=== PATIENT | male | born 1980 | race Hispanic/Latino ===

== ENCOUNTER 2024-11-16 07:54 | Emergency (ER) | payer SELFPAY ==
[2024-11-16] MEDS ORDERED: Magnesium 2 GM/50 ML BAG (IN WATER) ONE (08:19)
[2024-11-16 08:50] LABS: #Basophils 0.08 10x3/uL (0.0-0.2); #Eosinophils 0.12 10x3/uL (0.0-0.7); #Monocytes 0.81 10x3/uL (0.11-0.59); #Neutrophils 15.47 10x3/uL (1.40-6.50); %Basophils 0.3 % (0.0-1.0); %Eosinophils 0.5 % (0.0-10.0); %Lymphocytes 26.3 % (21.0-51.0); %Monocytes 3.4 % (0.0-10.0); %Neutrophils 64.7 % (42.0-75.0); Hematocrit 33.9 % (42.0-52.0); Hemoglobin 11.3 g/dL (14.0-18.0); Mean Corpuscular Hemoglobin 28.9 pg (27.0-31.0); Mean Corpuscular Volume 86.7 fL (78.0-98.0); Platelet Count 184 10x3/uL (130-400); Red Blood Cell (RBC) Count 3.91 mill/uL (4.70-6.10); White Blood Cell (WBC) Count 23.92 10x3/uL (4.8-10.8)
[2024-11-16 09:05] LABS: ALT (SGPT) 293 U/L (Less than 45); AST (SGOT) 270 U/L (11-34); Albumin 2.5 g/dL (3.1-4.5); Alkaline Phosphatase 82 U/L (40-110); Anion Gap 27 mmol/L (10-20); BUN (Urea Nitrogen) 14 mg/dL (8.9-20.6); Bilirubin, Total 0.4 mg/dL (0.3-1.2); Calc. Creatinine Clearance 0 mL/min (70-130); Calcium 9.5 mg/dL (7.8-10.44); Carbon Dioxide 20 mmol/L (22-29); Chloride 104 mmol/L (98-107); Globulin 2.7 g/dL (2.4-3.5); Glucose 391 mg/dL (70-105); Potassium 2.8 mmol/L (3.5-5.1); Sodium 148 mmol/L (136-145)
[2024-11-16 09:14] LABS: Troponin I 0.252 ng/mL (< 0.028)
== END 2024-11-16 08:52 | disposition expired ==
LOC: ERS 07:54 → EDBD 07:54 → ERS 08:52
DX: I46.9 Cardiac arrest, cause unspecified (principal)
CPT/HCPCS: 36556; 71045; 80053; 84484; 85025; 92950; J3475